=== PATIENT | female | born 1980 | race Caucasian/White ===

== ENCOUNTER 2020-12-08 12:27 | Inpatient (IN) | payer MEDICAID ==
[~2020-12-08] VITALS: Ht 157.5 cm; Wt 97.5 kg
[2020-12-08 12:27] VITALS: BP_SYST 112
--- NOTE | 2020-12-08 12:27 | NUR ---
PT BROUGHT HERE FROM [place], PT IS ON VOLUNTARY STATUS AT [facility] A 1-1 PATIENT. PT STATES THE VOICES IN HER HEAD TOLD HER TO DO IT. PLACED IN BED #1. BROUGHT IN BY [facility] AND PLACED IN BED #1 AND TRIAGED. REPORT GIVEN TO ANAMARIA Daly
--- NOTE | 2020-12-08 12:31 | NUR ---
FREIDA OCONNOR AT BEDSIDE FOR OBSERVATION.
--- NOTE | 2020-12-08 12:46 | NUR ---
pt arrived from [facility] after swallowing a pencil. Sitter at the bedside
--- NOTE | 2020-12-08 12:46 | NUR ---
XRAYS BEING DONE AT BEDSIDE
--- NOTE | 2020-12-08 12:46 | NUR ---
IFTIKHAR Zamudio at bedside examining patient.
[2020-12-08 13:09] LABS: BASOPHILS # (AUTO) 0.1 K/uL (0.0-0.2); BASOPHILS % (AUTO) 0.7 % (0.0-2.0); HEMOGLOBIN 12.8 g/dL (12.0-16.0); LYMPHOCYTES # (AUTO) 2.2 K/uL (1.0-5.5); LYMPHOCYTES % (AUTO) 28.5 % (20.5-51.5); MEAN CORPUSCULAR HEMOGLOBIN 28 pg (27-31); MEAN CORPUSCULAR HGB CONC 33 % (32-36); MEAN CORPUSCULAR VOLUME 85 fL (79.0-98.0); MONOCYTES # (AUTO) 0.7 K/uL (0.0-1.0); MONOCYTES % (AUTO) 8.3 % (1.7-9.3); NEUTROPHILS # (AUTO) 4.9 K/uL (1.8-7.7); NEUTROPHILS % (AUTO) 62.5 % (40.0-70.0); PLATELET COUNT (AUTO) 214 K/uL (130-430); RED BLOOD CELL COUNT(AUTO) 4.58 MIL/uL (4.2-6.2); RED CELL DISTRIBUTION WIDTH 15.8 % (9.0-15.0); WHITE BLOOD COUNT (AUTO) 7.8 K/uL (4.8-10.8)
--- NOTE | 2020-12-08 13:10 | NUR ---
Pt off the unit for CT
--- NOTE | 2020-12-08 13:11 | NUR ---
TAKEN TO RADIOLOGY VIA WHEELCHAIR
[2020-12-08 13:17] LABS: ANION GAP 10 (5-15); CALCIUM 8.2 mg/dL (8.4-11.0); CHLORIDE 106 mmol/L (98-107); CREATININE 0.76 mg/dL (0.55-1.30); GLUCOSE 97 mg/dL (70-99); POTASSIUM 3.8 mmol/L (3.5-5.1); SODIUM SERUM 142 mmol/L (136-145); UREA NITROGEN, BLOOD 11 mg/dL (8-21)
[2020-12-08 13:19] LABS: PROTHROMBIN TIME 10.3 SECS (9.5-12.5)
[2020-12-08 13:21] LABS: GFR AFRICAN AMERICAN 110 mL/min (>90)
[2020-12-08 13:22] LABS: ALANINE AMINOTRANSFERASE 57 U/L (12-78); ASPARTATE AMINOTRANSFERASE 35 U/L (10-37); BILIRUBIN,DIRECT < 0.1 mg/dL (0.0-0.3); LIPASE 71 U/L (73-393); TOTAL BILIRUBIN 0.2 mg/dL (0.0-1.0)
[2020-12-08 13:25] LABS: ACETAMINOPHEN < 1 ug/mL (1-30)
[2020-12-08] MEDS ORDERED: D5/0.45 NS 1,000 ML IV SCH (14:30)
--- NOTE | 2020-12-08 14:30 | NUR ---
Pt A&Ox4, sitter at bedside, pt cooperative with staff, respirations even and unlabored.
[2020-12-08] MEDS ORDERED: SERT-131 PO (15:06)
[2020-12-08] MEDS ORDERED: MIRT30TA7 PO (15:06)
[2020-12-08] MEDS ORDERED: OLAN15TA18 PO (15:06)
[2020-12-08] MEDS ORDERED: PHEN100C4 PO (15:06)
[2020-12-08] MEDS ORDERED: XOP.63 NEB (15:06)
--- NOTE | 2020-12-08 15:09 | NUR ---
Medication reconciliation completed with information provided by patient's chart. Any prior medication reconciliation on file was reviewed and corrected.
[2020-12-08] MEDS ORDERED: levalbuterol HCL 0.63 MG/3 ML VIAL.NEB INH PRN (16:00)
[2020-12-08] MEDS ORDERED: ONDANSETRON HCL 4 MG/2 ML VIAL IVP PRN (16:00)
[2020-12-08] MEDS: NACL 0.9% 1,000 ML IV SCH ×2 (16:00→17:40)
[2020-12-08] MEDS ORDERED: ACETAMINOPHEN 325 MG TABLET PO PRN (16:00)
--- NOTE | 2020-12-08 16:40 | NUR ---
report received from Vikki MARQUEZ
[2020-12-08 17:02] VITALS: BP_SYST 112
--- NOTE | 2020-12-08 17:11 | NUR ---
REPORT RECEIVED RECEIVED REPORT FROM JIMMY GARZA FROM ED.
--- NOTE | 2020-12-08 17:12 | NUR ---
REPORT GIVEN TO ROSA MARIA ON MED SURG, PT BEING TRANSFERRED AT THIS TIME.
--- NOTE | 2020-12-08 17:12 | NUR ---
Patient will be admitted to care DR AMADOR. Admitted to MED SURG unit. Will go to room 121A. Belongings list completed. Complete and up to date summary report printed. SBAR report to be given at bedside with opportunity for questions.
--- NOTE | 2020-12-08 17:25 | NUR ---
PATIENT RECEIVED FROM ED RECEIVED PATIENT LALITHA FROM [facility]RE[facility] HAYES, PATIENT A &OX4, ON ROOM AIR, WITHOUT SIGNS OF RESPIRATORY DISTRESS, IV LEFT HAND 24 GAUGE PATENT, WITHOUT INFILTRATION AND SL. DENIES PAIN, STATED SHE WAS SAD BECAUSE SHE HEARS VOICES, BED IN LOWEST , BRAKES LOCKED, BED ALARM ON, CALL LIGHT WITHIN REACH. PATIENT STABLE.
--- NOTE | 2020-12-08 17:40 | NUR ---
CONSULTATION PAGED/CALLED Reason for Consultation: [] PSYCHOSIS Person Who was Notified: [] DR SMITH Consulting Physician: [] DR SMITH Analytical Data Miner Specialty: [] GI Ordering Physician: [] DR AMADOR
--- NOTE | 2020-12-08 17:47 | NUR ---
CONSULTATION PAGED/CALLED Reason for Consultation: [] FOREIGN BODY INGESTED Person Who was Notified: [] LALO Consulting Physician: [] DR Dorothy CANO Drywall Stripper Specialty: [] GI Ordering Physician: [] DR AMADOR
[2020-12-08 18:12] VITALS: BP_SYST 112
--- NOTE | 2020-12-08 18:15 | NUR ---
SPOKE WITH DR. CANO SPOKE WITH DR. JEROME MD ORDERED EGD CONSENT AND SURGERY CONSULT, WILL CALL DR. AMADOR FOR SURGERY CONSULT .
--- NOTE | 2020-12-08 18:17 | NUR ---
SURGERY CONSULT CALLED AND SPOKE WITH DR. AMADOR REGARDING SURGEON, REQUESTED ORDERS FOR DR. MODI FOR SURGERY.
[2020-12-08] MEDS ORDERED: FLU VACC QS2020-21 (6 mos & up) 0.5 ML/SYRINGE I.M. PRN (18:30)
--- NOTE | 2020-12-08 18:48 | NUR ---
EGD CONSENT SIGNED PATIENT A &OX4, UNDERSTOOD RISKS AND BENEFITS OF EGD, SIGNED CONSENT FORM FOR EGD.
--- NOTE | 2020-12-08 18:50 | NUR ---
CLOSING NOTES PATIENT A &OX4, ON ROOM AIR, WITHOUT SIGNS OF RESPIRATORY DISTRESS, IV LEFT HAND 24 GAUGE PATENT, WITHOUT INFILTRATION AND IV FLUIDS RUNNING ORDERED. BED IN LOWEST , BRAKES LOCKED, BED ALARM ON, CALL LIGHT WITHIN REACH. PATIENT STABLE, ALL NEEDS MET, WILL ENDORSE CARE TO EXPANSION JOINT BUILDER RN, SITTER IN ROOM. Addendum: 12/08/20 at 1857 by Chitra Zeng RN SIDE RAILS PADDED, PATIENT HAS HISTORY OF EPILEPSY.
--- NOTE | 2020-12-08 19:30 | NUR ---
initial notes: pt is awake, alert, oriented x 3, no pain, no distress, watching tv. one on one sitter at bedside at this time. iv infusing to left hand gauge 24- intact and patent. no skin issue, ambulatory with steady gait. will assess the pt.
[2020-12-08 19:34] VITALS: BP_SYST 122
--- NOTE | 2020-12-08 20:00 | NUR ---
pt complain of hearing voice " that her ivf is poison" and ask for her pm medication, reorient and present to to pt the reality. pt also complain of her iv site is painful. stop ivf and will start new iv site.
[2020-12-08] MEDS: OLANZapine 5 MG TABLET PO SCH (20:01)
[2020-12-08] MEDS: MIRTAZAPINE 15 MG TABLET PO SCH (20:01)
[2020-12-08] MEDS: PHENYTOIN 100 MG CAPSULE PO SCH (20:01)
--- NOTE | 2020-12-08 21:00 | NUR ---
IV RE-INSERTION: Complaining of pain to IV site. Restarted on left fore arm. Successful after 1 attempt. Resumed current IVF of NS and regulated @ 70 per hour. Will observe for any signs of infiltration. Addendum: 12/08/20 at 2129 by Rich Wheeler RN pt is transferred to room 120 a with one on none sitter.
--- NOTE | 2020-12-08 22:07 | NUR ---
ASSUMPTION OF CARE: RECEIVED REPORT FROM URI White RN. PATIENT IS IN BED, RESTING. SITTER AT BEDSIDE. NO ACUTE DISTRESS. EVEN AND NONLABORED RESPIRATIONS ON ROOM AIR. IV SITE IS PATENT AND INTACT. BED IS LOCKED AT LOWEST POSITION. SIDE RAILS UP. CALL LIGHT IS WITH PATIENT. SAFETY AND FALL PRECAUTIONS IN PLACE. WILL CONTINUE WITH PLAN OF CARE.
--- NOTE | 2020-12-08 22:07 | NUR ---
report gishay to elizabeth ramos for continuation of care.
[2020-12-09 00:03] VITALS: BP_SYST 112
--- NOTE | 2020-12-09 05:56 | NUR ---
CONSULTATION PAGED/CALLED Reason for Consultation: FORIGEN BODY INJECTION Person Who was Notified: TEDDY Consulting Physician: FRANCE Reimbursement Analyst Specialty: Ordering Physician: MARJORIE
[2020-12-09 06:42] LABS: BASOPHILS % (AUTO) 0.6 % (0.0-2.0); HEMATOCRIT 35.8 % (36-48); HEMOGLOBIN 11.7 g/dL (12.0-16.0); LYMPHOCYTES # (AUTO) 2.5 K/uL (1.0-5.5); LYMPHOCYTES % (AUTO) 35.7 % (20.5-51.5); MEAN CORPUSCULAR HEMOGLOBIN 28 pg (27-31); MEAN CORPUSCULAR HGB CONC 33 % (32-36); MEAN CORPUSCULAR VOLUME 85 fL (79.0-98.0); MONOCYTES # (AUTO) 0.6 K/uL (0.0-1.0); MONOCYTES % (AUTO) 9.2 % (1.7-9.3); NEUTROPHILS # (AUTO) 3.8 K/uL (1.8-7.7); NEUTROPHILS % (AUTO) 54.5 % (40.0-70.0); PLATELET COUNT (AUTO) 188 K/uL (130-430); RED CELL DISTRIBUTION WIDTH 15.8 % (9.0-15.0)
[2020-12-09 06:45] LABS: CALCIUM 7.7 mg/dL (8.4-11.0); CREATININE 0.76 mg/dL (0.55-1.30)
--- NOTE | 2020-12-09 06:56 | NUR ---
CLOSING NOTE: PATIENT IS IN BED, RESTING. SITTER AT BEDSIDE. NO S/S OF ACUTE DISTRESS. RESPIRATIONS ARE EVEN AND NONLABORED ON ROOM AIR. IV SITE IS PATENT AND INTACT. ALL NEEDS MET. BED IS LOCKED AT LOWEST POSITION. SIDE RAILS UP. CALL LIGHT IS WITH PATIENT. SAFETY AND FALL PRECAUTIONS IN PLACE. WILL ENDORSE CARE TO DAYSHIFT RN.
--- NOTE | 2020-12-09 07:28 | NUR ---
OPENING NOTE Patient resting in the bed with eye closed. Respiration even and unlabored. IV intact to LFA, no redness, no swelling, no drainage. On NS at 70ml/hr, infusing well. Sitter at bedside. Safety measure maintained. Call light within reached. Bed locked in low position, side rails up, bed alarm on. Will continue to monitor.
[2020-12-09 07:55] VITALS: BP_SYST 129
[2020-12-09] MEDS: OLANZapine 5 MG TABLET PO SCH ×2 (09:00→21:33)
[2020-12-09] MEDS: SERTRALINE HCL 50 MG TABLET PO SCH (09:00)
--- NOTE | 2020-12-09 09:22 | NUR ---
AGITATION Patient has agitation behavior to get out of the room and pulled IV out. IV tip intact, no bleeding noted. Called Rahel Hines left message and waited to call back.
--- NOTE | 2020-12-09 09:32 | NUR ---
IV RE-INSERTION: IV pulled out by the patient. IV tip intact, no bleeding noted. Restarted on RFA, gauge 20 with good blood return. Flushed NS 5ml. Successful after one attempt. Resumed current IVF of NS and regulated @ 70 per hour. Will observe for any signs of infiltration.
[2020-12-09] MEDS: NACL 0.9% 1,000 ML IV SCH (09:42)
--- NOTE | 2020-12-09 10:21 | NUR ---
CALLED DR. AMADOR'S CELL PONE, LEFT MESSAGE AND WAITED TO CALL BACK.
--- NOTE | 2020-12-09 11:04 | NUR ---
HIGH ALERT NOTE: Called Rahel Hines back at [phone] identified within the medical roster to verify physician authenticity.
--- NOTE | 2020-12-09 11:10 | NUR ---
SEEN AND EXAMINED BY SHENA CHEN. REPORTED TO DR. SMITH, PATIENT HAD AGITATION THIS MORNING, REFUSED PO MED AND PULLED IV OUT. DR. AMADOR CALLED WITH ORDER OF ATIVAN 1 MG IVP Q6HR PRN AND BENADRYL 50 MG IVP Q 8HR PRN. HOWEVER, THE PATIENT CALM NOW AND NO PRN MED WAS GIVEN.
[2020-12-09] MEDS ORDERED: LORazepam 2 MG/ML VIAL IVP PRN (11:15)
[2020-12-09] MEDS ORDERED: DIPHENHYDRAMINE INJ 50 MG/ML VIAL IVP PRN (11:15)
[2020-12-09 11:26] VITALS: BP_SYST 99
--- NOTE | 2020-12-09 12:25 | NUR ---
SS notes: CIGARETTE TIPPER was referred by nursing to see patient for suicide risk. Collateral obtained from Dot from [facility] and from pt. CIGARETTE TIPPER met with patient at bedside and stated reason for visit. Pt is alert and oriented x4, calm and cooperative throughout the encounter. Pt is currently on a 5150 hold, written on 12/09 for DTS and GD. Pt is a 40 y/o single female who came to [facility] from [facility] after swallowing a pencil. Per Dot from [facility], pt got upset after having a 1:1 sitter, "pt ran to the group room and swallowed a pencil". Per Dot, pt was brought to [facility] by PD and Crisis team when patient verbalized wanting to hurt herself via overdose at the [facility] (homeless penit[facility]). Pt had been suffering from depression and suicide ideation x2 weeks. Pt has a long history of psych admissions, including multiple suicide attempts. Her last suicide attempt was in 2013 by overdose and was admitted at [facility] in [place]. Pt stated she was diagnosed with Bipolar, Schizophrenia and seizure disorder since 2013. Pt has history of PCP and meth use. Pt has been homeless since she was 21 y/o. Pt usually stays in the [place] area. Pt states she was recently released from care home on November 29 and was in [facility] "for a few months" prior. When discharged, pt prefers to go back to [facility] or to a penitentiary in [place]. Pt states she does not need clothing, but might be needing transportation when discharged. CIGARETTE TIPPER provided patient with homeless resources and waiver on chart. SS will remain available. Addendum: 12/09/20 at 1408 by Vahid ALBRIGHT CIGARETTE TIPPER received a call from Tramaine Heller (p:[phone]) with [facility] who stated patient is part of the "[facility]" program where they help clients who have been recently released from care home to be placed on housing. Per Tramaine, pt was released recently (November 29) and was sent to [facility] to the [facility] where she only stayed for 1 day. Per Tramaine, if discharge to [facility], they would prefer for patient to go to [facility] so that conservatorship can be applied. Per Tramaine, they wish to be updated with her discharge. CIGARETTE TIPPER attempted to meet with patient who is currently undergoing a test. CIGARETTE TIPPER will follow up. Addendum: 12/09/20 at 1424 by Vahid Mccullough MSW [facility]'s goal is to find a step-down place for patient when she gets discharged from the hospital. Pt also belonged to [facility] in the past and [facility] is trying to re-connect pt to them. Pt's radiological defense officer is Deputy Arroyo @ [phone].
[2020-12-09] MEDS ORDERED: SIMETHICONE 40 MG/0.6 ML ML ONE (12:49)
[2020-12-09 13:18] VITALS: BP_SYST 106
[2020-12-09 13:19] LABS: BILIRUBIN,URINE NEGATIVE (NEGATIVE); BLOOD, URINE 1+ (NEGATIVE); CLARITY/URINE CLEAR (CLEAR); COLOR,URINE YELLOW (YELLOW); GLUCOSE,URINE NEGATIVE (NEGATIVE); KETONES,URINE NEGATIVE (NEGATIVE); LEUKOCYTE ESTERASE ,URINE NEGATIVE (NEGATIVE); NITRITE, URINE NEGATIVE (NEGATIVE); PROTEIN URINE NEGATIVE (NEGATIVE); UROBILINOGEN,URINE 0.2 (0.2-1.0)
[2020-12-09 13:21] LABS: HCG,QUAL RESULT NEGATIVE (NEGATIVE)
--- NOTE | 2020-12-09 13:28 | NUR ---
PATIENT OFF UNIT TO EGD AND SURGERY IN STABLE CONDITION VIA BED.
[2020-12-09] MEDS ORDERED: MIDAZOLAM HCL 2 MG/2 ML VIAL (VERSED) IVP PRN (13:45)
[2020-12-09] MEDS ORDERED: LR 1,000 ML IV SCH (13:45)
[2020-12-09] MEDS ORDERED: HYDROmorphone 1 INJ. 1 MG/ML CARTRIDGE IVP PRN ×2 (13:45)
[2020-12-09] MEDS ORDERED: ONDANSETRON HCL 4 MG/2 ML VIAL IVP PRN (13:45)
[2020-12-09 14:00] LABS: BACTERIA,URINE RARE /HPF (None Seen); WBC,URINE 0-3 /HPF (0-3)
[2020-12-09 15:12] VITALS: BP_SYST 120
--- NOTE | 2020-12-09 15:12 | NUR ---
PATIENT BACK TO UNIT VIA BED IN STABLE CONDITION. REPORT RECEIVED BY JIMMY SANTACRUZ.
--- NOTE | 2020-12-09 16:50 | NUR ---
ROUND Patient resting in the bed. No acute distress. IV intact, IVF infusing well. Safety measure maintained. Call light within reached. Bed locked in low position, padded side rails up, bed alarm on. Sitter at bedside all the time. Continue to monitor.
--- NOTE | 2020-12-09 18:21 | NUR ---
ATIVAN GIVEN Patient c/o feeling anxious. Ativan 1 mg IVP given as ordered. No acute distress. IV intact, IVF infusing well. Sitter at bedside. Safety measure maintained. Call light within reached. Bed locked in low position, side rails up, bed alarm on. Continue to monitor.
--- NOTE | 2020-12-09 18:59 | NUR ---
CLOSING NOTE Patient resting in the bed. Calm at this time. Skin warm and dry to touch. IV intact to RFA, no redness, no swelling, patent, IVF infusing well. No seizure activity noted during shift. Safety measure maintained. Call light within reached. Bed locked in low position, padded side rails up, bed alarm on. Sitter at bedside all the time. Will endorse to night nurse.
[2020-12-09 20:50] VITALS: BP_SYST 116
--- NOTE | 2020-12-09 21:00 | NUR ---
Opening notes Pt AAOx4, pleasant mood, no agitation noted. Pt denies hearing voices at this time. Sitter at bedside. IVF infusing R.FA no s/s infiltration. Safety maintained. To monitor.
[2020-12-09] MEDS: MIRTAZAPINE 15 MG TABLET PO SCH (21:23)
[2020-12-09] MEDS: DIPHENHYDRAMINE HCL 50 MG CAPSULE PO SCH (21:24)
[2020-12-09] MEDS: PHENYTOIN 100 MG CAPSULE PO SCH (21:24)
[2020-12-09] MEDS: HALOPERIDOL 5 MG TABLET (HALDOL) PO SCH (21:24)
[2020-12-10] VITALS: BP_SYST 111
--- NOTE | 2020-12-10 00:15 | NUR ---
Rounds Pt asleep, VSS. No s/s distress noted. Sitter at bedside. Seizure precaution maintained. To monitor.
[2020-12-10] MEDS: NACL 0.9% 1,000 ML IV SCH (01:32)
--- NOTE | 2020-12-10 06:17 | NUR ---
Closing notes Pt asleep, easily awakens, no s/s distress noted. Sitter at bedside. IVF infusing R.FA no s/s infiltration. Safety maintained. Bed low, locked, siderails up x3. To endorse to AM nurse.
[2020-12-10 07:54] VITALS: BP_SYST 116
[2020-12-10] MEDS: SERTRALINE HCL 50 MG TABLET PO SCH (08:09)
[2020-12-10] MEDS: HALOPERIDOL 5 MG TABLET (HALDOL) PO SCH ×2 (08:09→20:18)
[2020-12-10] MEDS: OLANZapine 5 MG TABLET PO SCH ×2 (08:09→20:18)
[2020-12-10] MEDS: DIPHENHYDRAMINE HCL 50 MG CAPSULE PO SCH ×2 (08:09→20:18)
--- NOTE | 2020-12-10 08:19 | NUR ---
Late Entry ASSOCIATE MANAGER met with pt at bedside with the sitter. Pt was alert and oriented. ASSOCIATE MANAGER informed pt that [facility] worker, Tramaine Heller and Body Former Dina made contact and pt is agreeing for them to be provided with updates. ASSOCIATE MANAGER provided patient with both phone numbers.
[2020-12-10 11:54] VITALS: BP_SYST 106
--- NOTE | 2020-12-10 12:30 | NUR ---
Note Dr Tapia at pt's bedside to assess pt and check labs/tests at this time.
--- NOTE | 2020-12-10 14:39 | NUR ---
Psych transfer: SEX CRIMES DETECTIVE received report from that pt might be going back to [facility] today. SEX CRIMES DETECTIVE phoned Alyse from [facility] ([phone]) to review clinicals for possible transfer. Mariia MARQUEZ updated. If patient's hold is rescinded and pt is discharged in the evening, goes AMA or on a weekend, please call pt's electrical engineering drafting officer @ [phone].
[2020-12-10 15:27] VITALS: BP_SYST 114
--- NOTE | 2020-12-10 18:25 | NUR ---
Note Pt has been calm and resting in bed all shift. Around 1700, pt demanded to see her primary physician because she wanted to leave the hospital. Pt was reassured and calmed down. Pt went back to resting in bed and then eating her dinner when it arrived at 1730. No SOB/resp distress or pain/discomfort was noted all shift. No yelling/screaming/agitated behavior noted at this time. Pt's IV in right forearm intact and patent at this time. Pt has had a sitter at bedside all shift. Pt ambulated to restroom with standby assist. Pt denies any needs at this time. Call light within reach. Pt was checked on q1' and PRN all shift for needs and care.
--- NOTE | 2020-12-10 19:35 | NUR ---
OPENING NOTES RECEIVED PATIENT IN BED AWAKE. SITTER AT BEDSIDE. NO C/O PAIN. BREATHING UNLABORED ON ROOM AIR.
[2020-12-10 20:12] VITALS: BP_SYST 102
[2020-12-10] MEDS: MIRTAZAPINE 15 MG TABLET PO SCH (20:18)
[2020-12-10] MEDS: PHENYTOIN 100 MG CAPSULE PO SCH (20:19)
--- NOTE | 2020-12-10 20:19 | NUR ---
MED PASS PATIENT DUE MEDICATIONS GIVEN. VITAL SIGNS STABLE. PATIENT REFUSING IVF INFUSION. PATIENT C/O PAIN ON HER IV SITE BUT REFUSING IV LINE TO BE CHANGE.
--- NOTE | 2020-12-11 00:30 | NUR ---
ROUNDS PATIENT AWAKE IN BED WATCHING TV. SITTER AT BEDSIDE.
[2020-12-11] MEDS: NACL 0.9% 1,000 ML IV SCH (01:11)
--- NOTE | 2020-12-11 03:45 | NUR ---
ROUNDS PATIENT RESTING IN BED. BREATHING UNLABORED WITH INTERMITTENT SNORING. SITTER AT BEDSIDE.
--- NOTE | 2020-12-11 06:46 | NUR ---
CLOSING NOTES PATIENT NEEDS ATTENDED. NO CHANGE IN PATIENT CONDITION. 1:1 SITTER AT BEDSIDE. BED IN LOWEST LOCKED POSITION. SUICIDE AND SEIZURE PRECAUTIONS OBSERVED.
[2020-12-11 07:37] VITALS: BP_SYST 118
[2020-12-11] MEDS: OLANZapine 5 MG TABLET PO SCH (08:37)
[2020-12-11] MEDS: SERTRALINE HCL 50 MG TABLET PO SCH (08:37)
[2020-12-11] MEDS: HALOPERIDOL 5 MG TABLET (HALDOL) PO SCH (08:37)
[2020-12-11] MEDS: DIPHENHYDRAMINE HCL 50 MG CAPSULE PO SCH (08:37)
--- NOTE | 2020-12-11 08:39 | NUR ---
OPENING NOTES PATIENT ALERT AWAKE X 4. QUITE AND HAD ONE ON ONE SITTER. ABLE TO TAKE MEDICATION. AMBULATORY GOES TO THE BATHROOM. HAS IV ACCESS ON THE RT FOREARM. REFUSED TO HAVE IV FLUIDS. VERBALIZED I AM EATING GOOD. AND HAD A PADDED SIDERAILS ON.
--- NOTE | 2020-12-11 10:00 | NUR ---
ROGERIO MARQUEZ CALLED FOR VIKY FLYNN AND REPORT GIVEN AT THIS TIME.
--- NOTE | 2020-12-11 11:25 | NUR ---
Psych transfer: Information received from [facility] Dr. Latif RN to RN [phone] check in [facility] [place] Tracie / Faith MARQUEZ aware.
[2020-12-11 11:32] VITALS: BP_SYST 120
[2020-12-11 11:56] VITALS: BP_SYST 114
--- NOTE | 2020-12-11 12:00 | NUR ---
HAD EATEN LUNCH TIME. 100%. GOES TO THE BATHROOM
--- NOTE | 2020-12-11 12:14 | NUR ---
AWAITING FOR DR AMADOR TO CALLED FOR DISCHARGE ORDER.
--- NOTE | 2020-12-11 12:29 | NUR ---
DR AMADOR CALLED BACK AND SPOKE TO GUERITA FOR DISCHARGE TODAY.
[2020-12-11 14:22] VITALS: BP_SYST 134
--- NOTE | 2020-12-11 14:30 | NUR ---
PATIENT LEFT IN STABLE CONDITION WITH [facility] GOING TO [facility]. DISCHARGE SUMMARY GIVEN TO THE EMT. [facility] I D BAND REMOVED. IV ACCESS REMOVED. NO COMPLAINED MADE SO FAR.
== END 2020-12-11 14:30 | DRG 254 ==
LOC: SED 12:27 → SMU 14:19
PROVIDERS: ADMIT Internal Medicine; ATTEND Internal Medicine
PROC: 0DC98ZZ Extirpation of Matter from Duodenum, Via Natural or Artificial Opening Endoscopic (ICD-10-PCS; 2020-12-09)
PROC: 0DB78ZX Excision of Stomach, Pylorus, Via Natural or Artificial Opening Endoscopic, Diagnostic (ICD-10-PCS; principal; 2020-12-09 13:00)
DX: T18.9XXA Foreign body of alimentary tract, part unspecified, initial encounter (principal); R45.851 Suicidal ideations; E44.0 Moderate protein-calorie malnutrition; F25.9 Schizoaffective disorder, unspecified; K29.70 Gastritis, unspecified, without bleeding; F32.9 Major depressive disorder, single episode, unspecified; J45.909 Unspecified asthma, uncomplicated; Z20.822 Contact with and (suspected) exposure to COVID-19; F29 Unspecified psychosis not due to a substance or known physiological condition; G40.909 Epilepsy, unspecified, not intractable, without status epilepticus; X58.XXXA Exposure to other specified factors, initial encounter; Z88.0 Allergy status to penicillin; Y93.89 Activity, other specified; Y92.89 Other specified places as the place of occurrence of the external cause; Y99.8 Other external cause status
CPT/HCPCS: 36415; 71045; 74018; 76376; 80048; 80076; 81000; 83690; 84703; 85025; 85610-TC; 87081; 99285; G0480; G0481; J2060; J7030; J7120; Q0163